=== PATIENT | male | born 1960 | race Two or more races ===

== ENCOUNTER 2018-05-01 18:27 | Emergency (ER) | payer BC ==
[~2018-05-01] VITALS: Ht 182.9 cm; Wt 104.3 kg
[~2018-05-01 18:27] MED LIST: BIAXIN500 M1 PO; NEVIRAPINE200 MG PO; NORCO1 E1 ORAL; ROBAXIN-750750 MG PO; ZYRTEC10 MG ORAL
--- NOTE | 2018-05-01 19:23 | Emergency Room Report ---
History of Present Illness General Chief Complaint: Lower Extremity Injury Source: Patient Present Illness HPI 57-year-old male presents to the emergency department complaining of 8 out of 10 in severity localized pain to the left fifth toe since yesterday. Patient reports that he stubbed his foot on a bench. Patient reports pain is exacerbated upon walking or weightbearing. Patient states he has not taken any medication for her symptoms he reports some bruising at the base of the left fifth toe. Denies paresthesias. 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 + Review of Systems All Other Systems: negative except mentioned in HPI Physical Exam Vital Signs Date Time Temp Pulse Resp B/P (MAP) Pulse Ox O2 Delivery O2 Flow Rate FiO2 05/01/18 18:38 98.6 76 18 127/86 98 Room Air 98.6 Sp02 EP Interpretation: reviewed, normal General Appearance: no apparent distress, alert, GCS 15, non-toxic Head: normocephalic, atraumatic ENT: hearing grossly normal, normal voice Neck: full range of motion Respiratory: lungs clear, normal breath sounds, speaking full sentences Cardiovascular #1: regular rate, rhythm Rectal: deferred Genitourinary: normal inspection Musculoskeletal: back normal, gait/station normal, normal range of motion, tender - TTP left 5th toe, bruising noted at the base and is circumfrential, mild swelling noted to the lateral foot with no ttp on lateral foot. Neurologic: alert, oriented x3, responsive, motor strength/tone normal, sensory intact, speech normal, grossly normal Psychiatric: judgement/insight normal Skin: normal color, no rash, warm/dry, well hydrated, other - bruising to the base of the left lesser toe. Medical Decision Making PA Attestation Dr. Murphy is my supervising Physician whom patient management has been discussed with. Diagnostic Impression: Primary Impression: Phalanx fracture, foot Qualified Codes: S92.515A - Nondisplaced fracture of proximal phalanx of left lesser toe(s), initial encounter for closed fracture ER Course 57-year-old male presents to the emergency department complaining of 8 out of 10 in severity localized pain to the left fifth toe since yesterday. Patient reports that he stubbed his foot on a bench. Patient reports pain is exacerbated upon walking or weightbearing. Patient states he has not taken any medication for her symptoms he reports some bruising at the base of the left fifth toe. Denies paresthesias. Ddx considered but are not limited to Fracture, dislocation, contusion, Sprain/ Strain/Spasm. Vital signs: are WNL, pt. is afebrile H&PE are most consistent with musculoskeletal injury will perform imaging to r/ o fractures/dislocations. ORDERS: - X-ray Left Foot - POSITIVE for PROXIMAAL NON-DISPLACED FX of LEFT LESSER TOE. Negative for Dislocation, or significant soft tissue injury, per preliminary read in ED, and signed by GREGORY Gaona, my supervising physician has reviewed, and agrees with my interpretation. ED INTERVENTIONS: - [place] PO - Cast Shoe applied by foundry technician. Pt. remains neurovascularly intact. -Patient denied crutches so he was discharged with a cane. DISCHARGE: At this time pt. is stable for d/c to home. Will provide printed patient care instructions, and any necessary prescriptions. Care plan and follow up instructions have been discussed with the patient prior to discharge. Other X-Ray Diagnostic Results Other X-Ray Diagnostic Results : X-Ray ordered: Left toes # of Views/Limited Vs Complete: 3 View Indication: Pain EP Interpretation: Yes GREGORY Xray: Interpretation reviewed, by supervising MD, and agrees with findings. Interpretation: no dislocation, no soft tissue swelling, other - proximal phalanx fx of 5th toe Impression: Other - abnormal Electronically Signed by: Shelia Gaona PA-C Last Vital Signs Date Time Temp Pulse Resp B/P (MAP) Pulse Ox O2 Delivery O2 Flow Rate FiO2 05/01/18 18:38 98.6 76 18 127/86 98 Room Air 98.6 Disposition: HOME, SELF-CARE Condition: Stable Scripts Hydrocodone Bit/Acetaminophen 5-325* (NORCO 5-325*) 1 Each Tablet 1 TAB ORAL Q6H PRN for For Pain, #10 TAB 0 Refills Prov: Shelia Gaona 05/01/18 Ibuprofen* (MOTRIN*) 600 Mg Tablet 600 MG ORAL THREE TIMES A DAY, #30 TAB 0 Refills Prov: Shelia Gaona 05/01/18 Referrals: NON PHYSICIAN (PCP) Patient Instructions: Toe Fracture Additional Instructions: Take medications as directed. Follow up with an CRM COORDINATOR in 3-5 days, even if your symptoms have resolved. --Please review list of primary care clinics, if you do not already have a primary care provider who can give you an Orthopedic Referral. Return sooner to ED if new symptoms occur, or current symptoms become worse. Do not drink alcohol, drive, or operate heavy machinery while taking [place] as this may cause drowsiness. - Please note that this Emergency Department Report was dictated using [employer] ruby on rails developer technology software, occasionally this can lead to erroneous entry secondary to interpretation by the dictation equipment. Shelia Gaona May 01, 2018 19:23
[2018-05-01] MEDS ORDERED: IBUPROFEN600 MG ORAL (19:27)
[2018-05-01] MEDS ORDERED: NORCO 5-325 TA1 EACH ORAL (19:27)
[2018-05-01] MEDS ORDERED: Norco 5mg/325mg tab ORAL ONE (19:30)
[2018-05-01 20:01] VITALS: BP 120/75
--- NOTE | 2018-05-02 12:57 | Diagnostic Imaging Report ---
Indication: Pain left fifth toe, trauma Technique: 3 views of the left fifth toe Comparison: none Findings: Fused distal interphalangeal joint, normal anatomic variant. There is a complex fracture of the shaft of the fifth proximal phalanx. Suspected this involves the articular surface, although not for certain. This is nondisplaced. No other acute fractures. No dislocations. The joint spaces are preserved. Impression: Positive for fifth proximal phalangeal fracture This agrees with the preliminary interpretation provided by the emergency room physician
== END 2018-05-01 19:55 | disposition home or self-care (01) ==
LOC: EMR 19:08
DX: S92.515A Nondisplaced fracture of proximal phalanx of left lesser toe(s), initial encounter for closed fracture (principal); W22.8XXA Striking against or struck by other objects, initial encounter; Y93.9 Activity, unspecified; Y92.9 Unspecified place or not applicable; B20 Human immunodeficiency virus [HIV] disease
CPT/HCPCS: 99283